=== PATIENT | male | born 1975 | race Two or more races ===

== ENCOUNTER 2017-12-06 11:31 | Emergency (ER) | payer OTHER ==
[~2017-12-06] VITALS: Ht 177.8 cm; Wt 94.8 kg
[2017-12-06 12:02] VITALS: BP 129/65
[2017-12-06] MEDS: OXYMETAZOLINE HCL 0.05 % NASAL SPRAY 15ML ONE (12:17)
== END 2017-12-06 13:03 | disposition home or self-care (01) ==
LOC: ER 11:31
DX: R04.0 Epistaxis (principal); J45.909 Unspecified asthma, uncomplicated; Z91.013 Allergy to seafood
CPT/HCPCS: 82962